=== PATIENT | female | born 1950 | race Two or more races ===

== ENCOUNTER 2017-11-14 10:27 | Outpatient (CLI) | payer OTHER ==
[~2017-11-14 10:27] MED LIST: CIPRO500 MG; PYRIDIUM DS200 MG PO; SYNTHROID50 MCG; ZOCOR5 MG
== END 2017-11-14 10:35 | disposition home or self-care (01) ==
LOC: MAMO-SONO 10:27 → SONOGRAMA 10:27 → MAMO-SONO 10:35
DX: Z12.31 Encounter for screening mammogram for malignant neoplasm of breast (principal); Z87.898 Personal history of other specified conditions; N63.10 Unspecified lump in the right breast, unspecified quadrant; N63.20 Unspecified lump in the left breast, unspecified quadrant

== ENCOUNTER 2021-01-25 14:19 | Outpatient (CLI) | payer OTHER | END 2021-01-25 14:30 | disposition home or self-care (01) | LOC: MAMO-SONO 14:19 | PROVIDERS: ATTEND General Practice | DX: R92.0 Mammographic microcalcification found on diagnostic imaging of breast (principal); Z12.31 Encounter for screening mammogram for malignant neoplasm of breast; D48.61 Neoplasm of uncertain behavior of right breast; D48.62 Neoplasm of uncertain behavior of left breast ==

== ENCOUNTER 2021-04-02 09:33 | Outpatient (CLI) | payer OTHER | END 2021-04-02 09:39 | disposition home or self-care (01) | LOC: TOM 09:33 | PROVIDERS: ATTEND Internal Medicine Gastroenterology | DX: K57.90 Diverticulosis of intestine, part unspecified, without perforation or abscess without bleeding (principal); R10.84 Generalized abdominal pain ==